=== PATIENT | male | born 1995 | race American Indian/Alaskan Native ===

== ENCOUNTER 2019-12-26 18:07 | Emergency (ER) | payer SELFPAY ==
--- NOTE | 2019-12-26 19:03 | XRay Report ---
CHEST 2 VIEWS INDICATION: MAIN. Acute shortness of breath and cough, patient's mother's Covid positive COMPARISON: None FINDINGS: SUPPORT DEVICES: None. HEART: Within normal limits. LUNGS/PLEURA: No acute air space or interstitial disease. No pneumothorax. ADDITIONAL FINDINGS: None. IMPRESSION: 1. No acute findings. Signer Name: Henri Pedraza MD Signed: 12/26/2019 6:58 PM Workstation Name: [id number]
[2019-12-27] MEDS ORDERED: IBUPROFEN 600 MG TAB PO ONE (00:09)
[2019-12-27] MEDS ORDERED: predniSONE 20 MG TAB PO ONE (00:09)
[2019-12-27] MEDS ORDERED: IPRATROPIUM/ALBUTEROL SULFATE 3 ML AMPUL.NEB IH ONE (00:09)
--- NOTE | 2019-12-27 00:12 | Emergency Department Report ---
- General Chief Complaint: Upper Respiratory Infection Stated Complaint: MARITZA/COLD SYM Source: patient Mode of arrival: Ambulatory Limitations: No Limitations - History of Present Illness Initial Comments: Patient is a 24-year-old -Citizen Of The [place] male with no past medical history presents to the ED with complaint of acute onset persistent nasal and sinus congestion, frontal sinus pressure and headache, sore throat, persistent dry cough with wheezing and shortness of breath for the last 3 days. Patient states that he has also had persistent diffuse body aches and pains. Patient states that his grandmother of COVID-19 a few weeks ago and that other family members have tested positive for the same. Patient denies dizziness, syncope, change in vision, nausea and vomiting or diarrhea, abdominal pain, dysuria, fever and chills, urinary frequency and urgency, chest pain or palpitations. MD Complaint: cough, rhinorrhea, nasal congestion, sinus pain -: Sudden, days(s) (3) Severity: moderate Severity scale (0 -10): 5 Quality: sharp, aching Consistency: constant Improves With: nothing Worsens With: nothing Context: sick contacts Associated Symptoms: denies other symptoms, myalgias, headache, rhinorrhea, nasal congestion, sore throat, cough, shortness of breath. denies: fever, chills, diaphoresis, stiff neck, chest pain, abdominal pain, nausea, vomiting, diarrhea, dysuria, rash, confusion, right sweats, epistaxis, hoarseness, ear pain, other - Related Data Previous Rx's Medication Instructions Recorded Last Taken Type Albuterol Sulfate [Proventil Hfa] 1 - 2 puff IH Q6H PRN #1 hfa.aer.ad 12/27/19 Unknown Rx Azithromycin [Zithromax Z-WENDY] 250 mg PO DAILY #6 tablet 12/27/19 Unknown Rx Benzonatate [Tessalon Perles] 100 mg PO Q8HR #30 capsule 12/27/19 Unknown Rx Cetirizine HCl [Zyrtec 10mg tab] 10 mg PO DAILY #30 tablet 12/27/19 Unknown Rx Ibuprofen [Motrin] 600 mg PO Q8H PRN #24 tablet 12/27/19 Unknown Rx Prednisone [predniSONE 10 mg 10 mg PO .TAPER #21 tab.ds.pk 12/27/19 Unknown Rx (6-Day Pack, 21 Tabs)] Allergies Allergy/AdvReac Type Severity Reaction Status Date / Time No Known Allergies Allergy Unverified 12/26/19 18:27 ED Review of Systems ROS: Stated complaint: MARITZA/COLD SYM Other details as noted in HPI Constitutional: denies: chills, fever Eyes: denies: eye pain, eye discharge, vision change ENT: throat pain, congestion, other (Frontal and maxillary sinus pressure). denies: ear pain Respiratory: cough, shortness of breath, wheezing Cardiovascular: denies: chest pain, palpitations Endocrine: no symptoms reported Gastrointestinal: denies: abdominal pain, nausea, vomiting, diarrhea Genitourinary: denies: urgency, dysuria Musculoskeletal: arthralgia, myalgia. denies: back pain, joint swelling Skin: denies: rash, lesions Neurological: headache. denies: weakness, paresthesias Psychiatric: denies: anxiety, depression Hematological/Lymphatic: denies: easy bleeding, easy bruising ED Past Medical Hx - Past Medical History Previous Medical History?: No - Surgical History Past Surgical History?: No - Medications Home Medications: Home Medications Medication Instructions Recorded Confirmed Last Taken Type Albuterol Sulfate [Proventil Hfa] 1 - 2 puff IH Q6H PRN #1 hfa.aer.ad 12/27/19 Unknown Rx Azithromycin [Zithromax Z-WENDY] 250 mg PO DAILY #6 tablet 12/27/19 Unknown Rx Benzonatate [Tessalon Perles] 100 mg PO Q8HR #30 capsule 12/27/19 Unknown Rx Cetirizine HCl [Zyrtec 10mg tab] 10 mg PO DAILY #30 tablet 12/27/19 Unknown Rx Ibuprofen [Motrin] 600 mg PO Q8H PRN #24 tablet 12/27/19 Unknown Rx Prednisone [predniSONE 10 mg 10 mg PO .TAPER #21 tab.ds.pk 12/27/19 Unknown Rx (6-Day Pack, 21 Tabs)] ED Physical Exam - General Limitations: No Limitations General appearance: alert, in no apparent distress - Head Head exam: Present: atraumatic, normocephalic, normal inspection - Eye Eye exam: Present: normal appearance, PERRL, EOMI Pupils: Present: normal accommodation - ENT ENT exam: Present: normal orophraynx, mucous membranes moist, TM's normal bilaterally, normal external ear exam, other (Grossly congested nasal passages; palpable frontal and maxillary sinus tenderness) - Neck Neck exam: Present: normal inspection, full ROM - Respiratory Respiratory exam: Present: wheezes (Mildly diffuse coarse wheezes throughout). Absent: respiratory distress, rales, rhonchi, stridor, chest wall tenderness, decreased breath sounds, prolonged expiratory - Cardiovascular Cardiovascular Exam: Present: regular rate, normal rhythm, normal heart sounds. Absent: systolic murmur, diastolic murmur, rubs, gallop - GI/Abdominal GI/Abdominal exam: Present: soft, normal bowel sounds. Absent: tenderness, guarding, rebound, hyperactive bowel sounds, hypoactive bowel sounds, or ganomegaly - Extremities Exam Extremities exam: Present: normal inspection, full ROM, normal capillary refill - Back Exam Back exam: Present: normal inspection, full ROM. Absent: tenderness, CVA tenderness (R), CVA tenderness (L), muscle spasm, paraspinal tenderness, vertebral tenderness - Neurological Exam Neurological exam: Present: alert, oriented X3, CN II-XII intact, normal gait, reflexes normal - Psychiatric Psychiatric exam: Present: normal affect, normal mood - Skin Skin exam: Present: warm, dry, intact, normal color. Absent: rash ED Course Vital Signs 12/26/19 18:28 Temperature 98.7 F Pulse Rate 93 H Respiratory 18 Rate Blood Pressure 145/58 [Right] O2 Sat by Pulse 96 Oximetry ED Medical Decision Making - Radiology Data Radiology results: report reviewed, image reviewed Findings [facility] [address] [place] [address] XRay Report Signed Patient: ALEX FAIRCHILD MR#: [id number] : 1995 Acct:[id number] Age/Sex: 24 / M ADM Date: 12/26/19 Loc: ED Attending Dr: Ordering Physician: ED MD IVET Date of Service: 12/26/19 Procedure(s): XR chest routine 2V Accession Number(s): [id number] cc: ED MD IVET Fluoro Time In Minutes: CHEST 2 VIEWS INDICATION: MAIN. Acute shortness of breath and cough, patient's mother's Covid positive COMPARISON: None FINDINGS: SUPPORT DEVICES: None. HEART: Within normal limits. LUNGS/PLEURA: No acute air space or interstitial disease. No pneumothorax. ADDITIONAL FINDINGS: None. IMPRESSION: 1. No acute findings. Signer Name: Henri Pedraza MD Signed: 12/26/2019 6:58 PM Workstation Name: [id number] Transcribed By: EVANGELIST Dictated By: Henri Pedraza MD Electronically Authenticated By: Henri Pedraza MD Signed Date/Time: 12/26/191857 DD/ 57 TD/TT: - Medical Decision Making This is a 24-year-old -Citizen Of [place] male with no past medical history presents to the ED with complaint of acute onset persistent nasal and sinus c ongestion, frontal sinus pressure and headache, sore throat, persistent dry cough with wheezing and shortness of breath for the last 3 days. Patient states that he has also had persistent diffuse body aches and pains. Patient states that his grandmother of COVID-19 a few weeks ago and that other family members have tested positive for the same. In the ED, patient is alert and oriented x3 and is not in distress. Patient was treated in the ED with oral prednisone, pain medications and also given DuoNeb treatment in the ED. On reevaluation, patient's wheezing resolved with medication. Chest x-ray shows no acute cardiopulmonary abnormalities or pneumonitis. Patient was discharged home on medications and was advised to follow-up with his primary care physician in 5 to 7 days for reevaluation or return to the ED immediately if symptoms get worse. Patient was advised to go for an outpatient COVID-19 diagnostic test to ascertain his status given the fact that some of his family members have tested positive for the same after his mother of the same a few weeks ago. - Differential Diagnosis Sinusitis; URI; Bronchitis; Pneumonia; Covid-19 Critical care attestation.: If time is entered above; I have spent that time in minutes in the direct care of this critically ill patient, excluding procedure time. ED Disposition Clinical Impression: Acute non-recurrent frontal sinusitis, Acute upper respiratory infection Acute bronchitis Qualifiers: Bronchitis organism: unspecified organism Qualified Code(s): J20.9 - Acute bronchitis, unspecified Disposition: DC-01 TO HOME OR SELFCARE Is pt being admited?: No Does the pt Need Aspirin: No Condition: Stable Instructions: Acute Bronchitis (ED), Acute Bacterial Rhinosinusitis (ED) Additional Instructions: Chest x-ray shows no acute cardiopulmonary abnormalities or pneumonitis. Therefore take medication with food, drink plenty of fluids and follow-up with your primary care physician in 5 to 7 days for reevaluation. Return to the ED immediately if symptoms get worse. Prescriptions: Ibuprofen [Motrin] 600 mg PO Q8H PRN #24 tablet PRN Reason: Pain Prednisone [predniSONE 10 mg (6-Day Pack, 21 Tabs)] 10 mg PO .TAPER #21 tab.ds.pk Albuterol Sulfate [Proventil Hfa] 1 - 2 puff IH Q6H PRN #1 hfa.aer.ad PRN Reason: Wheezing Benzonatate [Tessalon Perles] 100 mg PO Q8HR #30 capsule Azithromycin [Zithromax Z-WENDY] 250 mg PO DAILY #6 tablet Cetirizine HCl [Zyrtec 10mg tab] 10 mg PO DAILY #30 tablet Referrals: [facility] [Provider Group] - 7-10 days Forms: Work/School Release Form(ED) Time of Disposition: 00:13 Print Language: BRAZILIAN
[2019-12-27 02:12] VITALS: BP 150/60
== END 2019-12-27 02:09 | disposition home or self-care (01) ==
LOC: ED 18:07
DX: J20.9 Acute bronchitis, unspecified (principal); J06.9 Acute upper respiratory infection, unspecified; J01.10 Acute frontal sinusitis, unspecified
CPT/HCPCS: 71046; 99283; J7512

== ENCOUNTER 2020-04-17 04:32 | Emergency (ER) | payer SELFPAY ==
--- NOTE | 2020-04-17 05:41 | XRay Report ---
CHEST 2 VIEWS INDICATION / CLINICAL INFORMATION: Chest Pain. COMPARISON: 12/26/19. FINDINGS: SUPPORT DEVICES: None. HEART / MEDIASTINUM: The heart size and pulmonary vasculature are normal. The aorta is normal in [place]. LUNGS / PLEURA: No significant pulmonary or pleural abnormality. No pneumothorax. ADDITIONAL FINDINGS: No significant additional findings. IMPRESSION: No acute abnormality or significant change. Signer Name: Gerber Gutierrez MD Signed: 04/17/2020 5:36 AM Workstation Name: [id number]
[2020-04-17 05:46] LABS: Basophils % (Auto) 0.4 % (0.0-1.8); Eosinophils # (Auto) 0.2 K/mm3 (0.0-0.4); Eosinophils % (Auto) 3.9 % (0.0-4.3); Hemoglobin 14.1 gm/dl (11.8-15.2); Lymphocytes # (Auto) 2.2 K/mm3 (1.2-5.4); Mean Corpuscular HGB Conc 34 % (32-34); Mean Corpuscular Volume 94 fl (84-94); Monocytes # (Auto) 0.5 K/mm3 (0.0-0.8); Monocytes % (Auto) 8.6 % (0.0-7.3); Platelet Count 198 K/mm3 (140-440); Red Blood Count 4.47 M/mm3 (3.65-5.03); Red Cell Distribution Width 12.3 % (13.2-15.2)
[2020-04-17 06:32] LABS: BUN/Creatinine Ratio 12; Blood Urea Nitrogen 11 mg/dL (9-20); Calcium 9.3 mg/dL (8.4-10.2); Hemolysis Index 11
--- NOTE | 2020-04-17 07:19 | Emergency Department Report ---
ED General Adult HPI - General Chief complaint: Chest Pain Stated complaint: CHEST TIGHTNESS/SOB Time Seen by Provider: 04/17/20 07:09 Source: patient Mode of arrival: Ambulatory Limitations: No Limitations - History of Present Illness Initial comments: There is a pleasant 24-year-old male who presents the emergency department chief complaint of intermittent chest discomfort, generalized body aches and paresthesias over the past few days. Patient has a history of generalized anxiety disorder and states this feels similar to when he has had anxiety in the past. He has been off of his anxiety medication for quite some time. He otherwise denies any known past medical history, current medication use or known allergies to medications. He denies any tobacco use. He denies any illicit drug use specifically denying cocaine use. He denies any associated fever, chills, night sweats, headache, dizziness, blurry vision, nausea, vomiting, diarrhea, shortness of breath, hemoptysis, exertional symptoms. He denies any pertinent family history of cardiac disease, sudden cardiac or thromboembolic disease. He denies any recent travel or immobilization. - Related Data Previous Rx's Medication Instructions Recorded Last Taken Type Albuterol Sulfate [Proventil Hfa] 1 - 2 puff IH Q6H PRN #1 hfa.aer.ad 12/27/19 Unknown Rx Azithromycin [Zithromax Z-WENDY] 250 mg PO DAILY #6 tablet 12/27/19 Unknown Rx Benzonatate [Tessalon Perles] 100 mg PO Q8HR #30 capsule 12/27/19 Unknown Rx Cetirizine HCl [Zyrtec 10mg tab] 10 mg PO DAILY #30 tablet 12/27/19 Unknown Rx Ibuprofen [Motrin] 600 mg PO Q8H PRN #24 tablet 12/27/19 Unknown Rx Prednisone [predniSONE 10 mg 10 mg PO .TAPER #21 tab.ds.pk 12/27/19 Unknown Rx (6-Day Pack, 21 Tabs)] hydrOXYzine PAMOATE [Vistaril] 25 mg PO Q6HR PRN #20 capsule 04/17/20 Unknown Rx Allergies Allergy/AdvReac Type Severity Reaction Status Date / Time No Known Allergies Allergy Unverified 12/26/19 18:27 ED Review of Systems ROS: Stated complaint: CHEST TIGHTNESS/SOB Other details as noted in HPI Comment: All other systems reviewed and negative Constitutional: denies: chills, fever Eyes: denies: eye pain, eye discharge, vision change ENT: denies: ear pain, throat pain Respiratory: denies: cough, shortness of breath, wheezing Cardiovascular: chest pain. denies: palpitations Endocrine: no symptoms reported Gastrointestinal: denies: abdominal pain, nausea, diarrhea Genitourinary: denies: urgency, dysuria Musculoskeletal: denies: back pain, joint swelling, arthralgia Skin: denies: rash, lesions Neurological: denies: headache, weakness, paresthesias Psychiatric: denies: anxiety, depression Hematological/Lymphatic: denies: easy bleeding, easy bruising ED Past Medical Hx - Past Medical History Previous Medical History?: Yes Hx Psychiatric Treatment: Yes (anxiety) - Surgical History Past Surgical History?: No - Medications Home Medications: Home Medications Medication Instructions Recorded Confirmed Last Taken Type Albuterol Sulfate [Proventil Hfa] 1 - 2 puff IH Q6H PRN #1 hfa.aer.ad 12/27/19 Unknown Rx Azithromycin [Zithromax Z-WENDY] 250 mg PO DAILY #6 tablet 12/27/19 Unknown Rx Benzonatate [Tessalon Perles] 100 mg PO Q8HR #30 capsule 12/27/19 Unknown Rx Cetirizine HCl [Zyrtec 10mg tab] 10 mg PO DAILY #30 tablet 12/27/19 Unknown Rx Ibuprofen [Motrin] 600 mg PO Q8H PRN #24 tablet 12/27/19 Unknown Rx Prednisone [predniSONE 10 mg 10 mg PO .TAPER #21 tab.ds.pk 12/27/19 Unknown Rx (6-Day Pack, 21 Tabs)] hydrOXYzine PAMOATE [Vistaril] 25 mg PO Q6HR PRN #20 capsule 04/17/20 Unknown Rx ED Physical Exam - General Limitations: No Limitations General appearance: alert, in no apparent distress - Head Head exam: Present: atraumatic, normocephalic - Eye Eye exam: Present: normal appearance, PERRL, EOMI Pupils: Present: normal accommodation - ENT ENT exam: Present: normal exam, normal orophraynx, mucous membranes moist - Neck Neck exam: Present: normal inspection, full ROM. Absent: tenderness, meningismus - Respiratory Respiratory exam: Present: normal lung sounds bilaterally, chest wall tenderness. Absent: respiratory distress - Cardiovascular Cardiovascular Exam: Present: regular rate, normal rhythm, normal heart sounds. Absent: systolic murmur, diastolic murmur, rubs, gallop - GI/Abdominal GI/Abdominal exam: Present: soft, normal bowel sounds, other (Negative Vallejo sign, no rebound or guarding). Absent: distended, tenderness, guarding, rebound, rigid, pulsatile mass - Rectal Rectal exam: Present: deferred - Extremities Exam Extremities exam: Present: normal inspection, full ROM, normal capillary refill. Absent: tenderness, calf tenderness (Negative Homans' sign bilaterally) - Back Exam Back exam: Present: normal inspection, full ROM. Absent: tenderness, CVA tenderness (R), CVA tenderness (L) - Neurological Exam Neurological exam: Present: alert, oriented X3, normal gait - Psychiatric Psychiatric exam: Present: normal affect, normal mood - Skin Skin exam: Present: warm, dry, intact, normal color. Absent: rash ED Course Vital Signs 04/17/20 05:11 Temperature 98.6 F Pulse Rate 80 Respiratory 18 Rate Blood Pressure 118/66 O2 Sat by Pulse 98 Oximetry ED Medical Decision Making - Lab Data Result diagrams: 04/17/20 05:27 04/17/20 05:27 Lab Results 04/17/20 04/17/20 Range/Units 05:27 05:27 WBC 5.8 (4.5-11.0) K/mm3 RBC 4.47 (3.65-5.03) M/mm3 Hgb 14.1 (11.8-15.2) gm/dl Hct 42.0 (35.5-45.6) % MCV 94 (84-94) fl MCH 32 (28-32) pg MCHC 34 (32-34) % RDW 12.3 L (13.2-15.2) % Plt Count 198 (140-440) K/mm3 Lymph % (Auto) 38.0 H (13.4-35.0) % [place] % (Auto) 8.6 H (0.0-7.3) % Eos % (Auto) 3.9 (0.0-4.3) % Baso % (Auto) 0.4 (0.0-1.8) % Lymph # (Auto) 2.2 (1.2-5.4) K/mm3 [place] # (Auto) 0.5 (0.0-0.8) K/mm3 Eos # (Auto) 0.2 (0.0-0.4) K/mm3 Baso # (Auto) 0.0 (0.0-0.1) K/mm3 Seg Neutrophils % 49.1 (40.0-70.0) % Seg Neutrophils # 2.8 (1.8-7.7) K/mm3 Sodium 140 (137-145) mmol/L Potassium 4.1 (3.6-5.0) mmol/L Chloride 103.1 (98-107) mmol/L Carbon Dioxide 33 H (22-30) mmol/L Anion Gap 8 mmol/L BUN 11 (9-20) mg/dL Creatinine 0.9 (0.8-1.3) mg/dL Estimated GFR > 60 ml/min BUN/Creatinine Ratio 12 % Glucose 112 H (75-100) mg/dL Calcium 9.3 (8.4-10.2) mg/dL - EKG Data -: EKG Interpreted by Tx EKG shows normal: sinus rhythm Rate: normal - EKG Data Interpretation: normal EKG (Normal sinus rhythm with a ventricular rate of 65 bpm, no acute ST or T wave abnormalities, no STEMI, normal axis, normal intervals.) - Radiology Data Radiology results: report reviewed No acute findings per radiology review - Medical Decision Making Patient nontoxic in no acute distress. Vital signs are stable. He is PERC negative and a low risk by Wells criteria making PE unlikely. EKG was unremarkable and he has no cardiac risk factors, exertional symptoms or illicit drug use making atypical ACS unlikely. He has a normal chest x-ray with no signs of pneumothorax, pneumonia. He had normal equal radial pulses bilaterally with no ripping or tearing pain to the back and a normal nonwidened mediastinum making aortic dissection unlikely. Patient did have some chest wall tenderness palpation which is likely the etiology of his pain. Overall is very low risk and he will follow-up outpatient with his primary care doctor and return to the ER with any change or worsening symptoms. The patient thinks this was likely more related to his anxiety which I will prescribe him a short course of Vistaril and recommend outpatient follow-up again with his primary care doctor for this. He is instructed to return to the emergency department if he develops any change or worsening symptoms. He verbalized understanding the diagnosis, treatment plan and follow-up instructions and all of his questions were kartik merchant - Differential Diagnosis ACS, PE, anxiety, pneumonia Critical care attestation.: If time is entered above; I have spent that time in minutes in the direct care of this critically ill patient, excluding procedure time. ED Disposition Clinical Impression: Acute nonspecific chest pain with low risk of coronary artery disease Disposition: TO HOME OR SELFCARE Is pt being admited?: No Condition: Stable Instructions: Chest Pain (ED), Nonspecific Chest Pain, Adult Prescriptions: hydrOXYzine PAMOATE [Vistaril] 25 mg PO Q6HR PRN #20 capsule PRN Reason: Anxiety Referrals: BRAD MÉNDEZ MD [Primary Care Provider] - 3-5 Days Forms: Work/School Release Form(ED) Time of Disposition: 07:16
[2020-04-17 07:48] VITALS: BP 113/45
== END 2020-04-17 07:47 | disposition home or self-care (01) ==
LOC: ED 04:32
DX: R07.89 Other chest pain (principal); R20.0 Anesthesia of skin; F41.9 Anxiety disorder, unspecified; Z79.1 Long term (current) use of non-steroidal anti-inflammatories (NSAID); Z79.2 Long term (current) use of antibiotics; Z79.899 Other long term (current) drug therapy
CPT/HCPCS: 36415; 71046; 80048; 85025; 93005

== ENCOUNTER 2020-08-15 10:06 | Emergency (ER) | payer OTHER ==
[2020-08-15 10:50] VITALS: BP 113/67
--- NOTE | 2020-08-15 11:24 | Emergency Department Report ---
ED General Adult HPI - General Chief complaint: Arrhythmia/Palpitations Stated complaint: HEART RAPID BEAT Time Seen by Provider: 08/15/20 11:20 Source: patient Mode of arrival: Ambulatory Limitations: No Limitations - History of Present Illness Initial comments: 25-year-old male patient with history of tobacco use and family history of heart disease presents to the emergency department with complaints of chest tightness and palpitations for 3 days. Symptoms are intermittent; no exacerbating or relieving factors identified. Patient recently began taking vitamin C and turmeric supplements. Last month, patient was prescribed a 30-day supply of [place] by a psychiatrist for anxiety. His last dose of Paxil was approximately 1 week ago. No illicit drug use. No caffeine intake. No family history of sudden cardiac . Denies fever, cough, shortness of breath, wheezing, syncope, seizure, vomiting, lower extremity pain/swelling. Denies all other complaints at this time. - Related Data Previous Rx's Medication Instructions Recorded Last Taken Type Albuterol Sulfate [Proventil Hfa] 1 - 2 puff IH Q6H PRN #1 hfa.aer.ad 12/27/19 Unknown Rx Azithromycin [Zithromax Z-WENDY] 250 mg PO DAILY #6 tablet 12/27/19 Unknown Rx Benzonatate [Tessalon Perles] 100 mg PO Q8HR #30 capsule 12/27/19 Unknown Rx Cetirizine HCl [Zyrtec 10mg tab] 10 mg PO DAILY #30 tablet 12/27/19 Unknown Rx Ibuprofen [Motrin] 600 mg PO Q8H PRN #24 tablet 12/27/19 Unknown Rx Prednisone [predniSONE 10 mg 10 mg PO .TAPER #21 tab.ds.pk 12/27/19 Unknown Rx (6-Day Pack, 21 Tabs)] hydrOXYzine PAMOATE [Vistaril] 25 mg PO Q6HR PRN #20 capsule 04/17/20 Unknown Rx Allergies Allergy/AdvReac Type Severity Reaction Status Date / Time No Known Allergies Allergy Unverified 12/26/19 18:27 ED Review of Systems ROS: Stated complaint: HEART RAPID BEAT Other details as noted in HPI Other: GENERAL: Negative for fever, chills, weight change, anorexia, fatigue. ENT: Negative for ear pain, difficulty hearing, sore throat, nasal congestion, epistaxis. CARDIOVASCULAR: Positive for chest pain and palpitations. PULMONARY: Negative for cough, dyspnea, wheezing, orthopnea, cyanosis. GASTROINTESTINAL: Negative for abdominal pain, nausea, vomiting, diarrhea, constipation. MUSCULOSKELETAL: Negative for joint pain, joint swelling, myalgias, back pain, neck pain. NEUROLOGICAL: Negative for headache, seizure, syncope, paresthesias, weakness. INTEGUMENTARY: Negative for erythema, rash, diaphoresis, laceration, ecchymosis. HEMATOLOGICAL: Negative for hemoptysis, hematemesis, hematochezia, hematuria. PSYCHIATRIC: Negative for hallucinations, suicidal ideation, homicidal ideation, anxiety, depression. ED Past Medical Hx - Past Medical History Previous Medical History?: Yes Hx Psychiatric Treatment: Yes (anxiety) - Surgical History Past Surgical History?: No - Medications Home Medications: Home Medications Medication Instructions Recorded Confirmed Last Taken Type Albuterol Sulfate [Proventil Hfa] 1 - 2 puff IH Q6H PRN #1 hfa.aer.ad 12/27/19 Unknown Rx Azithromycin [Zithromax Z-WENDY] 250 mg PO DAILY #6 tablet 12/27/19 Unknown Rx Benzonatate [Tessalon Perles] 100 mg PO Q8HR #30 capsule 12/27/19 Unknown Rx Cetirizine HCl [Zyrtec 10mg tab] 10 mg PO DAILY #30 tablet 12/27/19 Unknown Rx Ibuprofen [Motrin] 600 mg PO Q8H PRN #24 tablet 12/27/19 Unknown Rx Prednisone [predniSONE 10 mg 10 mg PO .TAPER #21 tab.ds.pk 12/27/19 Unknown Rx (6-Day Pack, 21 Tabs)] hydrOXYzine PAMOATE [Vistaril] 25 mg PO Q6HR PRN #20 capsule 04/17/20 Unknown Rx ED Physical Exam - General Limitations: No Limitations - Other Other exam information: General: Awake and alert. No acute distress. Head: Atraumatic, normocephalic. Eyes: EOMI. Pupils are equal and round. Normal sclera and conjunctiva. ENT: Oral mucosa is moist. Normal pharyngeal exam. Neck: Supple. No lymphadenopathy. Pulmonary: No respiratory distress. Clear to auscultation bilaterally. Cardiac: Regular rate and rhythm. Pulses are palpable and equal bilaterally. No lower extremity cyanosis or edema. Skin: Warm and dry. No rashes. Abdomen: Soft, non-tender, non-protuberant. No guarding, rigidity, or rebound. Bowel sounds are normal. No organomegaly or masses noted. Back: Normal alignment. No CVA tenderness. Extremities: Symmetrical. Full range of motion intact. Neurological: Alert and oriented, appropriately interactive, no focal deficits. Psych: Cooperative. Appropriate mood and affect. Speech is evenly metered. Thoughts are logically construed. ED Course Vital Signs 08/15/20 10:48 Temperature 98.4 F Pulse Rate 76 Respiratory 18 Rate Blood Pressure 113/67 [Right] O2 Sat by Pulse 99 Oximetry ED Medical Decision Making - Lab Data Result diagrams: 08/15/20 11:44 08/15/20 11:44 - Medical Decision Making Differential diagnosis including but not limited to: cardiac arrhythmia, hypertrophic cardiomyopathy, mitral valve prolapse, dehydration, electrolyte abnormality, anemia, hypoglycemia, anxiety, medication withdrawal On reevaluation, patient remains stable. EKG without evidence of cardiac arrhythmia. Chest x-ray is negative. Labs are unremarkable. Symptoms consistent for >12 hours; no indication for repeat troponin. No clinical indication for further diagnostic work-up on an emergent basis at this time. Patient's symptoms are likely attributable to recent abrupt discontinuation of SSRI medication. Patient has been instructed to follow-up with his mental health provider for refill of his Paxil. He has also been provided with referral to local cone worker for Holter monitoring if symptoms persist after resuming his medication. Patient expressed understanding and is agreeable to plan of care. Strict return precautions provided. Repeat exam is unremarkable and benign. History, exam, diagnostic testing, and current condition do not suggest worrisome pathology to warrant further testing, continued ED treatment, admission, or surgical evaluation at this point. Given the low probability of a significant medical illness, it would be more likely to result in harm than benefit to perform further testing at this stage. Discussed findings, presumptive diagnosis, need for follow-up and specific signs/symptoms that should prompt immediate return to the emergency department. Instructions were explained in detail to the patient in addition to giving written discharge information. Patient expressed understanding and was given the opportunity to ask questions, all of which were satisfactorily answered prior to discharge home. Critical care attestation.: If time is entered above; I have spent that time in minutes in the direct care of this critically ill patient, excluding procedure time. ED Disposition Clinical Impression: Palpitations Disposition: DC-01 TO HOME OR SELFCARE Is pt being admited?: No Does the pt Need Aspirin: No Condition: Stable Instructions: Palpitations, [id number] Additional Instructions: Drink plenty of fluids. Avoid caffeine/excess sugar intake. Follow-up with your psychiatrist next week regarding your current medication regimen. Call today to schedule an appointment. Follow-up with cone worker for continuous heart monitoring if symptoms persist after resuming your medication. See referral information below. Return to the emergency department immediately for new or worsening symptoms. Specifically, return to the emergency department for chest pain, dizziness, difficulty breathing, loss of consciousness, or any other concerns. Referrals: [facility] [Provider Group] - 3-5 Days [facility] [Provider Group] - 3-5 Days [facility] [Provider Group] - 3-5 Days Time of Disposition: 13:06
--- NOTE | 2020-08-15 12:06 | XRay Report ---
CHEST 2 VIEWS INDICATION: chest pain/palpitations. COMPARISON: 04/17/2020 FINDINGS: Support devices: None. Heart: Within normal limits. Lungs/pleura: No acute air space or interstitial disease. No pneumothorax. Additional findings: None. IMPRESSION: No acute findings. Signer Name: Homar Do Jr, MD Signed: 08/15/2020 12:01 PM Workstation Name: [id number]
[2020-08-15 12:31] LABS: Basophils % (Auto) 0.3 % (0.0-1.8); Eosinophils # (Auto) 0.1 K/mm3 (0.0-0.4); Eosinophils % (Auto) 2.2 % (0.0-4.3); Hemoglobin 14.3 gm/dl (11.8-15.2); Lymphocytes # (Auto) 1.9 K/mm3 (1.2-5.4); Lymphocytes % (Auto) 36.1 % (13.4-35.0); Mean Corpuscular HGB Conc 33 % (32-34); Mean Corpuscular Volume 96 fl (84-94); Monocytes # (Auto) 0.6 K/mm3 (0.0-0.8); Monocytes % (Auto) 10.9 % (0.0-7.3); Platelet Count 246 K/mm3 (140-440); Red Blood Count 4.51 M/mm3 (3.65-5.03)
[2020-08-15 12:57] LABS: Alanine Aminotransferase 12 units/L (7-56); Albumin 4.3 g/dL (3.9-5); BUN/Creatinine Ratio 11; Blood Urea Nitrogen 10 mg/dL (9-20); Calcium 8.9 mg/dL (8.4-10.2); Hemolysis Index 10
--- NOTE | 2020-08-18 10:34 | Electrocardiograph Report ---
[facility] Test Date: 2020-08-15 Test Time: 10:44:15 Pat Name: ALEX FAIRCHILD Department: Room: Gender: M [employer]: TV : 1995 Requested By: STAN MOE Order Number: [id number] Reading MD: Timothy Martins Measurements Intervals [place] Rate: 64 P: 56 RI: 127 QRS: 13 QRSD: 93 T: 32 QT: 349 QTc: 359 Interpretive Statements Sinus rhythm No previous ECG available for comparison Electronically Signed On 08-18-2020 10:33:56 EDT by Timothy Martins
== END 2020-08-15 13:28 | disposition home or self-care (01) ==
LOC: ED 10:06
DX: R00.2 Palpitations (principal); F41.9 Anxiety disorder, unspecified; Z79.899 Other long term (current) drug therapy
CPT/HCPCS: 36415; 71046; 80053; 83735; 84484; 85025; 93005